=== PATIENT | female | born 1950 | race Caucasian/White ===

== ENCOUNTER 2020-05-13 02:20 | Emergency (ER) | payer MEDICARE ==
[~2020-05-13] VITALS: Ht 154.9 cm; Wt 65.8 kg
[2020-05-13 02:21] VITALS: BP 134/74
--- NOTE | 2020-05-13 02:26 | NUR ---
PT TAKEN TO BED 05 VIA [facility]UCERO.
--- NOTE | 2020-05-13 02:50 | NUR ---
69 YEAR OLD FEMALE COMPLAINS OF DIZZINESS STARTING TONIGHT. PT AOX4, BREATHING EVEN AND UNLABORED, SKIN WARM AND DRY. PT DENIES FALLING. BED IN LOWEST POSITION, LOCKED, BED RAIL UPX1. PMH - DENIES ALLERGIES - SULFAS
--- NOTE | 2020-05-13 02:50 | NUR ---
BEDSIDE COMMODE PLACED BY PT FOR URINE
--- NOTE | 2020-05-13 02:50 | NUR ---
69 YEAR OLD FEMALE COMPLAINS OF DIZZINESS STARTING TONIGHT. PT AOX4, BREATHING EVEN AND UNLABORED, SKIN WARM AND DRY. PT DENIES FALLING. BED IN LOWEST POSITION, LOCKED, BED RAIL UPX2. PMH - DENIES ALLERGIES - SULFAS
--- NOTE | 2020-05-13 02:54 | NUR ---
XRAY AT BEDSIDE. PT UNABLE TO URINATE, ERMD MADE AWARE
--- NOTE | 2020-05-13 03:31 | NUR ---
ABLE TO OBTAIN URINE WITHOUT STRAIGHT CATH, ERMD AWARE
[2020-05-13 03:34] LABS: BASOPHILS % (AUTO) 0.4 % (0.0-2.0); EOSINOPHILS # (AUTO) 0.2 K/uL (0-0.4); EOSINOPHILS % (AUTO) 2.4 % (0.0-4.0); HEMATOCRIT 34.2 % (36-48); HEMOGLOBIN 11.3 g/dL (12.0-16.0); LYMPHOCYTES # (AUTO) 3.3 K/uL (2.5-16.5); LYMPHOCYTES % (AUTO) 39.1 % (20.5-51.1); MEAN CORPUSCULAR HEMOGLOBIN 29 pg (27-31); MEAN CORPUSCULAR HGB CONC 33 g/dL (33-37); MEAN CORPUSCULAR VOLUME 86.5 fL (80-94); MONOCYTES # (AUTO) 0.7 K/uL (0.8-1.0); MONOCYTES % (AUTO) 8.1 % (1.7-9.3); NEUTROPHILS # (AUTO) 4.2 K/uL (1.8-7.7); PLATELET COUNT (AUTO) 310 K/uL (140-450); RED BLOOD CELL COUNT(AUTO) 3.96 MIL/uL (4.20-5.40); RED CELL DISTRIBUTION WIDTH 15.7 % (11.6-13.7); WHITE BLOOD COUNT (AUTO) 8.4 K/uL (4.8-10.8)
--- NOTE | 2020-05-13 03:35 | NUR ---
PT ALERT AND AWAKE, BREATHING EVEN AND UNLABORED. PT READING BOOK
[2020-05-13 03:53] LABS: APPEARANCE,URINE CLEAR (CLEAR); BILIRUBIN,URINE NEGATIVE (NEGATIVE); BLOOD, URINE TRACE-I (NEGATIVE); COLOR,URINE YELLOW (YELLOW); LEUKOCYTE ESTERASE ,URINE 2+ (NEGATIVE); NITRITE, URINE POSITIVE (NEGATIVE); UGLUCOSE NEGATIVE (NEGATIVE)
[2020-05-13 04:01] LABS: ALBUMIN 2.9 g/dL (3.4-5.0); ANION GAP 13.2 (8-16); CARBON DIOXIDE 30.6 mmol/L (21-32); CREATININE 0.9 mg/dL (0.6-1.3); POTASSIUM 3.8 mmol/L (3.5-5.1); THYROID STIMULATING HORMONE 1.87 uIU/mL (0.34-3.74); TOTAL BILIRUBIN 0.2 mg/dL (0.0-1.0)
[2020-05-13 04:18] LABS: WBC,URINE 16-25 (MOD) /HPF (0-5)
[2020-05-13] MEDS ORDERED: cefTRIAXone 1,000 MG VIAL ONE (04:33)
--- NOTE | 2020-05-13 05:39 | NUR ---
CONTACT SYLVIA WHITESIDE CONTACTED PER PT, STATES SHE WILL COME MANAGER [employer]CHITECTURAL PT
[2020-05-13 06:06] VITALS: BP 132/79
--- NOTE | 2020-05-13 06:06 | NUR ---
Patient discharged with v/s stable. Written and verbal after care instructions about urinary tract infection given and explained. Patient alert, oriented and verbalized understanding of instructions. Ambulatory with steady gait. All questions addressed prior to discharge. ID band removed. Patient advised to follow up with PMD. Rx of macrobid capsule given. Patient educated on indication of medication including possible reaction and side effects. Opportunity to ask questions provided and answered.
--- NOTE | 2020-05-15 20:38 | NUR ---
LATE ENTRY-- RECEVIED A POSITIVE URINE CULTURE FOR E. COLI, GIVEN TO DR DEL REAL, NO FURTHER ACTION NECESSARY.
== END 2020-05-13 06:06 | disposition home or self-care (01) ==
LOC: MED 02:20
DX: N39.0 Urinary tract infection, site not specified (principal); Z88.2 Allergy status to sulfonamides
CPT/HCPCS: 36415; 71045; 80053; 81001; 84443; 85025; 87040; 87086; 87186; 96365; 99284; J0696; Q0092

== ENCOUNTER 2024-02-15 22:33 | Emergency (ER) | payer MEDICARE ==
[~2024-02-15] VITALS: Ht 154.9 cm; Wt 72.6 kg
[2024-02-15 22:35] VITALS: BP 116/84; PULSE 97; RESP 18; TEMP 97.9; O2SAT 98
[2024-02-15 22:56] VITALS: TEMP 97.9
[2024-02-15 23:59] LABS: BASOPHILS % (AUTO) 0.4 % (0.0-2.0); EOSINOPHILS # (AUTO) 0.1 K/uL (0-0.4); EOSINOPHILS % (AUTO) 1.2 % (0.0-4.0); HEMOGLOBIN 11.7 g/dL (12.0-16.0); LYMPHOCYTES # (AUTO) 2.4 K/uL (2.5-16.5); LYMPHOCYTES % (AUTO) 19.4 % (20.5-51.1); MEAN CORPUSCULAR HEMOGLOBIN 28 pg (27-31); MEAN CORPUSCULAR HGB CONC 33 g/dL (33-37); MEAN CORPUSCULAR VOLUME 85.1 fL (80-94); MONOCYTES # (AUTO) 1.1 K/uL (0.8-1.0); MONOCYTES % (AUTO) 8.8 % (1.7-9.3); NEUTROPHILS # (AUTO) 8.6 K/uL (1.8-7.7); NEUTROPHILS % (AUTO) 70.2 % (42.2-75.2); PLATELET COUNT (AUTO) 304 K/uL (140-450); RED BLOOD CELL COUNT(AUTO) 4.12 MIL/uL (4.20-5.40); RED CELL DISTRIBUTION WIDTH 14.5 % (11.6-13.7); WHITE BLOOD COUNT (AUTO) 12.2 K/uL (4.8-10.8)
[2024-02-16 00:08] LABS: ANION GAP 8.8 (8-16); CALCIUM 9.2 mg/dL (8.5-10.1); CARBON DIOXIDE 33.4 mmol/L (21-32); CHLORIDE 99 mmol/L (98-107); CREATININE 0.8 mg/dL (0.6-1.3); GLUCOSE 141 mg/dL (74-106); POTASSIUM 4.2 mmol/L (3.5-5.1); SODIUM SERUM 137 mmol/L (136-145); UREA NITROGEN, BLOOD 20 mg/dL (7-18)
[2024-02-16 00:14] LABS: BILIRUBIN,DIRECT 0.1 mg/dL (0.0-0.3); TOTAL BILIRUBIN 0.2 mg/dL (0.0-1.0); TOTAL PROTEIN, SERUM 7.8 g/dL (6.4-8.2)
[2024-02-16 01:21] LABS: APPEARANCE,URINE CLEAR (CLEAR); BILIRUBIN,URINE NEGATIVE (NEGATIVE); BLOOD, URINE TRACE-I (NEGATIVE); COLOR,URINE YELLOW (YELLOW); LEUKOCYTE ESTERASE ,URINE 1+ (NEGATIVE); NITRITE, URINE NEGATIVE (NEGATIVE); PROTEIN,URINE NEGATIVE (NEGATIVE); UGLUCOSE NEGATIVE (NEGATIVE); UROBILINOGEN,URINE 0.2 EU/dL (0.2 - 1)
[2024-02-16 01:24] LABS: WBC,URINE >25 (MANY) /HPF (0-5)
[2024-02-16 01:25] LABS: BACTERIA,URINE 10-30 (MOD) /HPF (None Seen); MUCUS,URINE 1+ /LPF (None Seen); SQUAMOUS EPITHELIAL CELL,UR 0-3 (FEW) /LPF (0-3 (FEW))
[2024-02-16] MEDS ORDERED: cefTRIAXone 1,000 MG VIAL ONE (01:56)
[2024-02-16] MEDS ORDERED: LIDOCAINE MPF 1% 5 ML ONE (01:56)
[2024-02-16] MEDS: cefTRIAXone 1,000 MG in LIDOCAINE MPF 1% 2.1 ML IM ONE (02:04)
[2024-02-16 03:33] VITALS: BP 155/82; PULSE 103; RESP 16; O2SAT 98
== END 2024-02-16 05:00 | disposition home or self-care (01) ==
LOC: MED 22:33
DX: N39.0 Urinary tract infection, site not specified (principal); F43.0 Acute stress reaction; E11.9 Type 2 diabetes mellitus without complications; Z79.4 Long term (current) use of insulin; Z79.899 Other long term (current) drug therapy
CPT/HCPCS: 36415; 80048; 80076; 81001; 85025; 87086; 93005; 96372; 99284; J0696; J2001